=== PATIENT | female | born 1945 | race Caucasian/White ===

== ENCOUNTER 2018-05-23 13:09 | Outpatient (CLI) | payer OTHER ==
[2018-05-23] MEDS ORDERED: iohexol 350MG/ML 100ml bottle IV ONE (13:11)
[2018-05-23] MEDS ORDERED: iohexol 350 MG/ML 50ML vial IV ONE (13:11)
== END 2018-05-23 23:59 | disposition home or self-care (01) ==
LOC: 64 CT 13:09
PROVIDERS: ATTEND Internal Medicine
DX: I70.203 Unspecified atherosclerosis of native arteries of extremities, bilateral legs (principal); L03.116 Cellulitis of left lower limb; I77.1 Stricture of artery; R09.89 Other specified symptoms and signs involving the circulatory and respiratory systems
CPT/HCPCS: 75635; Q9967